=== PATIENT | female | born 1990 | race Caucasian/White ===

== ENCOUNTER 2021-08-25 13:47 | Inpatient (IN) | payer OTHER ==
[~2021-08-25] VITALS: Ht 154.9 cm; Wt 120.2 kg
--- NOTE | 2021-08-27 09:15 | NUR ---
both nares swabbed for covid-19 without complication. sample taken to lab.
--- NOTE | 2021-08-27 13:30 | NUR ---
08/27/21 1330 CARRIE MAC 1321-PATIENT ARRIVES BACK TO ROOM 104. PATIENT RATES PAIN 02/13. DENIES NAUSEA. RESP EVEN. PARTNER AT BEDSIDE. IV IN RIGHT WRIST WNL. OR CHARGE NURSE CONTACTED FOR TAP BLOCKS. BLACK LEATHER TRIMMER UNAVALIABLE AT THIS TIME.
--- NOTE | 2021-08-28 08:36 | PR ---
[facility] [address] [facility] [place], [place] [address] Signed PP Progress Notes Datetime Report Generated by CPN: 08/28/2021 08:36 SUBJECTIVE: [id number] Pain: Within Normal Limits Pain Comments: much improved pain from yesterday Nausea/Vomiting: Denies Flatus: No Vital Signs: [id number] Vital Signs: Reviewed; Within Normal Limits EXAM: Ongoing Cardiovascular: Normal Respiratory: Normal Abdomen/Uterus: Abnormal Lochia: Normal Vulva/Perineum: Not Done Breasts: Not Done CVA Tenderness: Not Done Extremities: Normal Incision: Normal Progress: Abnormal Exam Comments: Active BS. Fundus firm, NT @ U-1. H/H 8.5/26.6, WBC 13.8, plat 231k IMPRESSION/PLAN/PROCEDURES: [id number] Impression: Normal Progression Other Plans: ambulate, D/C ann, shower Progress Notes: Doing well. She is feeling much better today. H/H better than expected. Will continue observation. Signing Physician: Antonia Clancy MD Copies: ~ *Electronically Signed* 08/28/21 0836 ANTONIA CLANCY MD PATIENT NAME: DON AGUERO PROGRESS NOTE DATE OF : [birth year] PHYSICIAN: ANTONIA CLANCY MD RPT #: [id number] REPORT IS CONFIDENTIAL AND NOT TO BE RELEASED WITHOUT AUTHORIZATION
--- NOTE | 2021-08-29 10:16 | PR ---
[facility] [address] [facility] [place], [place] [address] Signed PP Progress Notes Datetime Report Generated by NEL: 08/29/2021 10:16 SUBJECTIVE: [id number] Pain: Within Normal Limits Pain Comments: much improved pain from yesterday Nausea/Vomiting: Denies Flatus: Yes Bowel Movement: Yes Vital Signs: [id number] Vital Signs: Reviewed; Within Normal Limits EXAM: Met Cardiovascular: Normal Respiratory: Not Done Abdomen/Uterus: Abnormal Lochia: Normal Vulva/Perineum: Not Done Breasts: Not Done CVA Tenderness: Not Done Extremities: Normal Incision: Normal Progress: Normal Exam Comments: Abdomen with active BS. Fundus firm, NT @ U-2. IMPRESSION/PLAN/PROCEDURES: [id number] Impression: Normal Progression; Induced Hypertension Plan: Discharge Other Plans: ambulate, D/C ann, shower Procedures: None Progress Notes: Doing well. She is tolerating her anemia without difficulty. BPs are improved. Signing Physician: Antonia Clancy MD Copies: ~ *Electronically Signed* 08/29/21 1016 ANTONIA CLANCY MD PATIENT NAME: DON AGUERO PROGRESS NOTE DATE OF : [birth year] PHYSICIAN: ANTONIA CLANCY MD RPT #: [id number] REPORT IS CONFIDENTIAL AND NOT TO BE RELEASED WITHOUT AUTHORIZATION
--- NOTE | 2021-08-29 10:17 | PR ---
[facility] [address] [facility] [place], [place] [address] Signed PP Progress Notes Datetime Report Generated by NEL: 08/29/2021 10:17 SUBJECTIVE: [id number] Pain: Within Normal Limits Pain Comments: much improved pain from yesterday Nausea/Vomiting: Denies Flatus: Yes Bowel Movement: Yes Vital Signs: [id number] Vital Signs: Reviewed; Within Normal Limits EXAM: Met Cardiovascular: Normal Respiratory: Not Done Abdomen/Uterus: Abnormal Lochia: Normal Vulva/Perineum: Not Done Breasts: Not Done CVA Tenderness: Not Done Extremities: Normal Incision: Normal Progress: Normal Exam Comments: Abdomen with active BS. Fundus firm, NT @ U-2. IMPRESSION/PLAN/PROCEDURES: [id number] Impression: Normal Progression; Induced Hypertension Plan: Discharge Other Plans: ambulate, D/C ann, shower Procedures: None Progress Notes: Doing well. She is tolerating her anemia without difficulty. BPs are improved. Signing Physician: Antonia Clancy MD Copies: ~ *Electronically Signed* 08/29/21 1017 ANTONIA CLANCY MD PATIENT NAME: DON AGUERO PROGRESS NOTE DATE OF : 90 PHYSICIAN: ANTONIA CLANCY MD RPT #: [id number] REPORT IS CONFIDENTIAL AND NOT TO BE RELEASED WITHOUT AUTHORIZATION
[2021-08-30] MEDS ORDERED: IBUPROFEN800 MG PO (15:53)
[2021-08-30] MEDS ORDERED: OXYCODONE HCL5 MG PO (15:53)
--- NOTE | 2021-09-03 09:15 | OR ---
[facility] [address] [place], [place] [address] Signed DATE OF OPERATION: 08/27/2021 SURGEON: Antonia Clancy MD HALAL MEAT PACKER: Faith Washington DO PREOPERATIVE DIAGNOSES: Term , previous section, chronic hypertension with superimposed preeclampsia, morbid obesity. POSTOPERATIVE DIAGNOSES: Term , previous section, chronic hypertension with superimposed preeclampsia, laceration left uterine artery with hemorrhage, morbid obesity. PROCEDURE: Repeat section with low segment transverse uterine incision. ANESTHESIA: Spinal. ESTIMATED BLOOD LOSS: 1500 mL. DRAINS: Barnard catheter. INDICATIONS AND FINDINGS: The patient is a 31-year-old female, 4, para 2, SAB 1, status post prior section, was admitted at 37 weeks for repeat because of her chronic hypertension with superimposed preeclampsia. At the time of surgery, she was delivered of a little boy via lower segment transverse uterine incision with Apgars of 9 and 9 and weight of 6 pounds 5 ounces. He was ROT. The placenta, tubes, and ovaries were normal. However, after delivery, there was a laceration noted in the left uterine artery area which took multiple sutures to control. After control of this bleeding, the remainder of the blood loss was minimal. There was no atony. DESCRIPTION OF PROCEDURE: The patient was prepped and draped in the supine position. A repeat Pfannenstiel skin incision was made and carried down to the fascia. The fascial incision was extended Electronically Signed By: ANTONIA CLANCY MD 09/03/21 0915 PATIENT NAME: DON AGUERO OPERATIVE REPORT DATE OF : 89 REPORT #: [id number] PHYSICIAN: ANTONIA CLANCY MD PCP: MARIA GUADALUPE HELM MD REPORT IS CONFIDENTIAL AND NOT TO BE RELEASED WITHOUT AUTHORIZATION [facility] [address] [place], [place] [address] Signed laterally. The inferior and superior fascial flaps were then created. The peritoneum was opened sharply and the muscles divided sharply and the peritoneum extended bluntly. The Facundo retractor was then placed. The uterine incision was made at the upper aspect of the peritoneal reflection. The baby was delivered with the above findings and handed off to the pediatric staff in attendance. The placenta was then removed manually. The lacerated artery was grasped with multiple T clamps as well as ring forceps to help control bleeding. The uterus was explored with a lap tape assuring no remaining fragments. The uterus did contract well and quickly. The uterus was closed with a running locking stitch of 0 Monocryl. This was begun at the angle with good control of this bleeding. This was run to the right side. After completion of the 1st layer, there was still some oozing at the left angle and [place] sutures using 0 Monocryl were used x3 to control the bleeding in this area. The uterine wall was then closed with a second layer of imbricating 0 Monocryl. An additional suture was required in the midportion of the incision for control of bleeding. There was also a bleeding vessel beneath the bladder flap area on the surface of the uterus which required a figure-of- eight suture of 3-0 chromic for control of bleeding. Other superficial vessels were controlled with cautery. This area was copiously irrigated and inspected and good hemostasis was noted. Following this, the retractor was removed and the peritoneum identified. ACell graft was laid over the lower segment to aid with healing. The peritoneum was then closed with a running suture of 3-0 Vicryl. The muscles were brought together with interrupted sutures of 0-Vicryl. Bleeding points on the muscle a running suture of 3-0 Vicryl. This area was irrigated and found to be hemostatic. ACell powder was sprinkled over the muscles to aid in healing. The fascia was then closed from each angle to the midline with a running suture of 0 Vicryl. The subcu tissue was irrigated, inspected and bleeding points controlled with cautery. The deep space was closed with interrupted sutures of 3-0 Vicryl. The skin was closed with guillaume. All sponge and needle counts were correct. Vital signs were stable throughout her surgery. She was taken to the recovery room in good condition. Antonia Clancy MD PJW/MODL /[id number] cc: Faith Washington DO Electronically Signed By: ANTONAI CLANCY MD 09/03/21 0915 PATIENT NAME: DON AGUERO OPERATIVE REPORT DATE OF : [birth year] REPORT #: [id number] PHYSICIAN: ANTONIA CLANCY MD PCP: MARIA GUADALUPE HELM MD REPORT IS CONFIDENTIAL AND NOT TO BE RELEASED WITHOUT AUTHORIZATION [address] [address] Signed Copies: ~ Electronically Signed By: ANTONIA CLANCY MD 09/03/21 0915 PATIENT NAME: DON AGUERO OPERATIVE REPORT DATE OF : [birth year] REPORT #: [id number] PHYSICIAN: ANTONIA CLANCY MD PCP: MARIA GUADALUPE HELM MD REPORT IS CONFIDENTIAL AND NOT TO BE RELEASED WITHOUT AUTHORIZATION
== END 2021-08-29 11:40 | disposition home or self-care (01) | DRG 787 ==
LOC: FBC 08-27 08:50
PROVIDERS: ADMIT Obstetrics & Gynecology; ATTEND Obstetrics & Gynecology
PROC: 0W3R0ZZ Control Bleeding in Genitourinary Tract, Open Approach (ICD-10-PCS; 2021-08-27)
PROC: 10D00Z1 Extraction of Products of Conception, Low, Open Approach (ICD-10-PCS; principal; 2021-08-27 12:00)
DX: O34.211 Maternal care for low transverse scar from previous cesarean delivery (principal); D62 Acute posthemorrhagic anemia; O10.92 Unspecified pre-existing hypertension complicating childbirth; Z3A.37 37 weeks gestation of pregnancy; Z37.0 Single live birth; O11.4 Pre-existing hypertension with pre-eclampsia, complicating childbirth; O99.02 Anemia complicating childbirth; Z20.822 Contact with and (suspected) exposure to COVID-19; O99.214 Obesity complicating childbirth; E66.01 Morbid (severe) obesity due to excess calories; Z90.49 Acquired absence of other specified parts of digestive tract
CPT/HCPCS: 82565; 82570; 84156; 84450; 84520; 84550; 85027; 86850; 86900; 86901; A9270; C9803; J1100; J1644; J2001; J2270; J2274; J2300; J2405; J2550; J2590; J2765; J2795; J3010; J7121; Q0138; U0003

== ENCOUNTER 2021-08-30 14:36 | Emergency (ER) | payer OTHER ==
[~2021-08-30] VITALS: Ht 154.9 cm; Wt 118.4 kg
[2021-08-30] MEDS ORDERED: IBUPROFEN800 MG PO (15:53)
[2021-08-30] MEDS ORDERED: OXYCODONE HCL5 MG PO (15:53)
== END 2021-08-30 18:08 | disposition home or self-care (01) ==
LOC: ED 14:36
DX: O12.05 Gestational edema, complicating the puerperium (principal); Z87.891 Personal history of nicotine dependence; Z88.0 Allergy status to penicillin; Z88.1 Allergy status to other antibiotic agents; Z79.899 Other long term (current) drug therapy
CPT/HCPCS: 93971; 99284-25